=== PATIENT | male | born 1955 | race Caucasian/White ===

== ENCOUNTER 2018-02-21 16:30 | Outpatient (REF) | payer MEDICAID, SELFPAY ==
[2018-02-21 17:49] LABS: HGB 14.4 g/dL (13.5-17.5); Mean Corp. HGB Concentration 32.7 g/dL (32.0-36.0); Mean Corpuscular Hemoglobin 31.4 pg (27.0-33.0); Mean Corpuscular Volume 95.9 fL (80-95); Mean Platelet Volume 9.4 fL (8.0-11.0); Platelet Count 408 x1000/uL (130-400); RBC 4.59 m/cumm (4.50-6.00); RBC Distribution Width 14.7 % (11.8-14.1); White Blood Cell Count 11.94 k/cumm (4.4-10.8)
[2018-02-21 18:17] LABS: TSH (W/Ref FT4) 4.46 uIU/mL (0.358-3.74)
[2018-02-21 18:36] LABS: FREE T4 0.85 ng/dL (0.76-1.46)
== END 2018-02-21 16:50 ==
LOC: NCHCN 16:30
PROVIDERS: PCP Nurse Practitioner Family; Visit Provider Family Medicine
DX: E03.9 Hypothyroidism, unspecified (principal)
CPT/HCPCS: 85027; 84439; 84443

== ENCOUNTER 2018-05-27 14:34 | Outpatient (REF) | payer MEDICAID, SELFPAY ==
[2018-05-27 21:03] LABS: Abs Immature Grans 0.09 k/cumm (0.0-0.09); Absolute Basophil Count 0.03 k/cumm (0.0-0.2); Absolute Eosinophil Count 0.07 k/cumm (0.0-0.7); Absolute Lymphocyte Count 1.27 k/cumm (1.2-3.4); Absolute Monocyte Count 1.21 k/cumm (0.11-0.7); Absolute Neutrophil Count 10.47 k/cumm (1.2-6.7); Basophils % 0.2; Eosinophils % 0.5; HCT 42.3 % (40.0-50.0); Immature Grans % 0.7; Lymphocytes % 9.7; Mean Corp. HGB Concentration 33.1 g/dL (32.0-36.0); Mean Corpuscular Volume 93.6 fL (80-95); Mean Platelet Volume 9.4 fL (8.0-11.0); Monocytes % 9.2; Neutrophils % 79.7; Platelet Count 435 x1000/uL (130-400); RBC 4.52 m/cumm (4.50-6.00); White Blood Cell Count 13.14 k/cumm (4.4-10.8)
[2018-05-27 21:35] LABS: ALT 29 U/L (12-78); AST 16 U/L (15-37); Alkaline Phosphatase 95 U/L (46-116); Anion Gap 8.4 mmol/L (3-11); BUN 9 mg/dL (7-18); Bilirubin, Total 0.4 mg/dL (0.2-1.0); CO2 28.6 mmol/L (21.0-32.0); CREATININE 0.93 mg/dL (0.70-1.30); Calcium 9.6 mg/dL (8.5-10.1); Chloride 94 mmol/L (98-107); Glucose 121 mg/dL (70-100); Potassium 4.3 mmol/L (3.5-5.1); Sodium 131 mmol/L (136-145)
[2018-05-30 12:33] LABS: Lyme Ab w Rflx to Lyme Confirm Negative
== END 2018-05-27 14:54 ==
LOC: NCHCN 14:34
PROVIDERS: PCP Nurse Practitioner Family; Visit Provider Family Medicine
DX: R61 Generalized hyperhidrosis (principal)
CPT/HCPCS: 80053; 85025; 86618

== ENCOUNTER 2021-01-10 14:35 | Outpatient (REF) | payer MEDICAID, SELFPAY ==
[2021-01-10 21:38] LABS: Hemoglobin A1C 5.5 % (<5.7)
[2021-01-10 22:26] LABS: BUN 8 mg/dL (7-18); Calcium 9.1 mg/dL (8.5-10.1); Glucose 96 mg/dL (74-106)
[2021-01-10 22:27] LABS: Bilirubin, Total 0.4 mg/dL (0.2-1.0); CREATININE 0.9 mg/dL (0.70-1.30); Calculated LDL 107 mg/dL (<100); Cholesterol 166 mg/dL (<200); HDL Cholesterol 52 mg/dL (40-60); Total Protein 7.8 g/dL (6.4-8.2); Triglyceride 39 mg/dL (<150)
[2021-01-10 22:35] LABS: ALT 26 U/L (16-63); AST 19 U/L (15-37); Alkaline Phosphatase 90 U/L (46-116); Anion Gap 7.8 mmol/L (3-11); CO2 29.2 mmol/L (21.0-32.0); Chloride 102 mmol/L (98-107); Potassium 4.6 mmol/L (3.5-5.1); Sodium 139 mmol/L (136-145); TSH (W/Ref FT4) 6.09 uIU/mL (0.36-3.74)
[2021-01-13 08:06] LABS: PSA, Screening 0.9 ng/mL (0.0-4.5)
== END 2021-01-10 14:36 | disposition home or self-care (01) ==
LOC: NCHCN 14:35
PROVIDERS: PCP Nurse Practitioner Family; Visit Provider Nurse Practitioner Family
DX: E03.9 Hypothyroidism, unspecified (principal); I10 Essential (primary) hypertension; F39 Unspecified mood [affective] disorder; R73.9 Hyperglycemia, unspecified; R39.9 Unspecified symptoms and signs involving the genitourinary system; K30 Functional dyspepsia; G47.00 Insomnia, unspecified; Z12.5 Encounter for screening for malignant neoplasm of prostate
CPT/HCPCS: 80053; 80061; 84153; 83036; 84439; 84443

== ENCOUNTER 2021-03-25 12:32 | Outpatient (REF) | payer MEDICAID, SELFPAY ==
[2021-03-25 15:52] LABS: Abs Immature Grans 0.11 10^3/uL (0.0-0.06); Absolute Basophil Count 0.05 10^3/uL (0.0-0.2); Absolute Lymphocyte Count 1.66 10^3/uL (1.2-3.4); Absolute Neutrophil Count 6.11 10^3/uL (1.2-6.7); Basophils % 0.6; Eosinophils % 1.1; HCT 40.1 % (40.0-50.0); HGB 13.1 g/dL (13.5-17.5); Immature Grans % 1.2; Lymphocytes % 18.6; MCH 29.8 pg (27.0-33.0); MCHC 32.7 % (32.0-36.0); MCV 91.1 fL (80-95); MPV 9.2 fL (8.0-11.0); Monocytes % 10.1; Neutrophils % 68.4; Nucleated RBC 0 %; Platelet Count 365 10^3/uL (130-400); RDW 13.2 % (11.8-14.1); RDW-SD 43.9 fL; WBC 8.93 10^3/uL (4.4-10.8)
[2021-03-25 16:27] LABS: Iron 49 ug/dL (65-175); Total Iron Binding Capacity 277 ug/dL (250-450); Transferrin Sat 18 % (20-55)
[2021-03-25 16:28] LABS: ALT 29 U/L (16-63); AST 10 U/L (15-37); Albumin 3.9 g/dL (3.4-5.0); Alkaline Phosphatase 95 U/L (46-116); Anion Gap 10.4 mmol/L (3-11); BUN 5 mg/dL (7-18); Bilirubin, Total 0.3 mg/dL (0.2-1.0); CO2 25.6 mmol/L (21.0-32.0); CREATININE 0.8 mg/dL (0.70-1.30); Calcium 9.3 mg/dL (8.5-10.1); Calculated LDL 60 mg/dL (<100); Chloride 99 mmol/L (98-107); Cholesterol 122 mg/dL (<200); Ferritin 75 ng/mL (26-388); Glucose 99 mg/dL (74-106); HDL Cholesterol 50 mg/dL (40-60); Potassium 4.1 mmol/L (3.5-5.1); Sodium 135 mmol/L (136-145); TSH (W/Ref FT4) 4.52 uIU/mL (0.36-3.74); Total Protein 7.9 g/dL (6.4-8.2); Triglyceride 63 mg/dL (<150)
[2021-03-25 16:52] LABS: FREE T4 0.92 ng/dL (0.76-1.46)
[2021-03-26 10:50] LABS: Lyme Ab w Rflx to Lyme Confirm Negative (Negative)
[2021-03-27 23:57] LABS: Anaplasma phagocytophilum Negative (Negative); B. miyamotoi PCR Negative (Negative); Babesia divergens/MO-1 Negative (Negative); Babesia duncani Negative (Negative); Babesia microti Negative (Negative); Ehrlichia chaffeensis Negative (Negative); Ehrlichia ewingii/canis Negative (Negative); Ehrlichia muris eauclairensis Negative (Negative)
== END 2021-03-25 12:33 | disposition home or self-care (01) ==
LOC: NCHCN 12:32
PROVIDERS: PCP Nurse Practitioner Family; Visit Provider Nurse Practitioner Family
DX: R53.83 Other fatigue (principal); R39.9 Unspecified symptoms and signs involving the genitourinary system; E03.9 Hypothyroidism, unspecified; G47.00 Insomnia, unspecified; F39 Unspecified mood [affective] disorder
CPT/HCPCS: 80053; 80061; 87798; 82728; 83540; 83550; 84439; 84443; 85025; 86618

== ENCOUNTER 2021-05-26 13:27 | Outpatient (REF) | payer MEDICAID, SELFPAY ==
[2021-05-26 17:12] LABS: Abs Immature Grans 0.07 10^3/uL (0.0-0.06); Absolute Basophil Count 0.07 10^3/uL (0.0-0.2); Absolute Eosinophil Count 0.24 10^3/uL (0.0-0.7); Absolute Lymphocyte Count 1.95 10^3/uL (1.2-3.4); Absolute Monocyte Count 0.98 10^3/uL (0.1-0.8); Absolute Neutrophil Count 4.95 10^3/uL (1.2-6.7); Basophils % 0.8; Eosinophils % 2.9; HCT 40.8 % (40.0-50.0); HGB 13.4 g/dL (13.5-17.5); Immature Grans % 0.8; Lymphocytes % 23.6; MCH 30.6 pg (27.0-33.0); MCHC 32.8 % (32.0-36.0); MCV 93.2 fL (80-95); MPV 9.6 fL (8.0-11.0); Monocytes % 11.9; Nucleated RBC 0 %; Platelet Count 352 10^3/uL (130-400); RBC 4.38 10^6/uL (4.36-5.78); RDW 14.5 % (11.8-14.1); RDW-SD 50.4 fL; WBC 8.26 10^3/uL (4.4-10.8)
[2021-05-26 17:37] LABS: Ferritin 125 ng/mL (26-388); Iron 91 ug/dL (65-175); Total Iron Binding Capacity 285 ug/dL (250-450); Transferrin Sat 32 % (20-55)
== END 2021-05-26 13:28 | disposition home or self-care (01) ==
LOC: NCHCN 13:27
PROVIDERS: PCP Nurse Practitioner Family; Visit Provider Nurse Practitioner Family
DX: R53.83 Other fatigue (principal); I10 Essential (primary) hypertension; D50.9 Iron deficiency anemia, unspecified; I25.10 Atherosclerotic heart disease of native coronary artery without angina pectoris; K30 Functional dyspepsia; R31.21 Asymptomatic microscopic hematuria
CPT/HCPCS: 82728; 83540; 83550; 85025

== ENCOUNTER 2021-08-04 12:53 | Outpatient (REF) | payer MEDICAID, SELFPAY ==
[2021-08-04 15:36] LABS: TSH (W/Ref FT4) 3.74 uIU/mL (0.36-3.74)
== END 2021-08-04 12:54 | disposition home or self-care (01) ==
LOC: NCHCN 12:53
PROVIDERS: PCP Nurse Practitioner Family; Visit Provider Nurse Practitioner Family
DX: E03.9 Hypothyroidism, unspecified (principal)
CPT/HCPCS: 84443

== ENCOUNTER 2021-10-06 07:59 | Day surgery (SDC) | payer MEDICAID, SELFPAY ==
[2021-10-06 08:28] VITALS: BP 134/68; PULSE 75; RESP 16; TEMP 36.7; O2SAT 98
[2021-10-06] MEDS: Tropicam./Phenyleph. (1/2.5%) 5 ML BTL OD ×3 (08:36→08:53)
--- NOTE | 2021-10-06 08:58 | W.ANESPRE ---
General Info Date of Service Date Performed: 10/06/21 Height: 5 ft 8.75 in Weight: 72.8 kg Body Mass Index (BMI): 23.8 Surgical Procedure: Operation Date: 10/06/21 10:40 Proposed Procedure Side Surgeon p Cataract Extraction with IOL Implant Right Mumtaz Hennessy MD Meds Allergies and Home Medications Allergies Allergy/AdvReac Type Severity Reaction Status Date / Time perfume Allergy Intermediate Other (See Unverified 10/03/21 11:20 Comment) Home Medication Medication Instructions Recorded lisinopril 10 mg tablet 1 tab PO DAILY 05/09/14 sertraline 50 mg tablet (Zoloft) 1 tab PO DAILY 05/09/14 mirtazapine 30 mg tablet 1 tab PO DAILY 08/03/14 acetylcysteine 600 mg tablet (NAC) 2 tab PO BID 10/02/21 citalopram 20 mg tablet 30 mg PO DAILY 10/02/21 fluticasone propionate 50 1 spray intranasal BID 10/02/21 mcg/actuation nasal spray,suspension loratadine 10 mg tablet 1 tab PO DAILY 10/02/21 melatonin 10 mg tablet 1 tab PO HS 10/02/21 quetiapine 100 mg tablet 200 mg PO HS 10/02/21 simvastatin 20 mg tablet 1 tab PO DAILY 10/02/21 tamsulosin 0.4 mg capsule (Flomax) 0.4 mg PO HS 10/02/21 trazodone 50 mg tablet 1 tab PO HS 10/02/21 losartan 25 mg tablet 1 tab PO DAILY 10/03/21 Current Visit Medications: Current Medications Generic Name Dose Route Start Last Admin Trade Name Freq PRN Reason Stop Dose Admin Acetaminophen 1,000 mg 10/06/21 06:00 Acetaminophen 500 Mg Tab PO Q4H PRN PRN Miscellaneous Medication 0 ml 10/06/21 06:00 Prednisolone 1%, Moxifloxacin 0.5%, Nepafenac 0.1% 5ml Btl OD DIRECTED [facility] Miscellaneous Medication 0 ml 10/06/21 06:00 10/06/21 08:53 Tropicam./Phenyleph. (1/2.5%) 5 Ml Btl OD 1 drp DIRECTED [facility] Administration Tetracaine HCl 0 ml 10/06/21 06:00 Tetracaine 0.5% 4 Ml Btl OD DIRECTED [facility] Medical History Medical History ASCVD (arteriosclerotic cardiovascular disease) Asymptomatic microscopic hematuria Bilateral cataracts Dyspepsia Elevated blood sugar Fatigue Glaucoma HTN (hypertension) Hypothyroidism Insomnia Iron deficiency anemia Lower urinary tract symptoms (LUTS) Mood disorder Refusal of blood transfusions as patient is Tenriism Seasonal allergies Sebaceous cyst Surgical History Surgical History (Updated 10/06/21 @ 08:44 by Kait Villela RN) Hx of repair of rotator cuff pt denies he had thid surgery Tobacco Smoking/Tobacco Use Status: Former Tobacco Use Alcohol Alcohol Intake: never Substance Use Substance use: Daily Substance use type: marijuana Vital Signs and Lab Results Vital Signs Most Recent Vital Signs in EMR: Most Recent Vital Signs Temp Pulse Resp BP Pulse Ox 36.7 C 75 16 134/68 98 10/06/21 08:28 10/06/21 08:28 10/06/21 08:28 10/06/21 08:28 10/06/21 08:28 Lab Results Blood Type / Crossmatch: No Data to Display Complete Blood Count: No Data to Display Complete Metabolic Panel: No Data to Display Liver Function Panel: No Data to Display Coagulation Panel: No Data to Display Cardiac Panel: No Data to Display Arterial Blood Gas: No Data to Display Venous Blood Gas: No Data to Display Pancreas Panel: No Data to Display Thyroid Panel: No Data to Display Infectious Disease: No Data to Display Blood Cultures: No Data to Display Toxicology Panel: No Data to Display Imaging and Studies Imaging and Studies Study information below may be from another EMR and interpreted by another provider. Please see original notes in EMR for more complete details. Stress Test Summary: 05/09/2014: No ischemia. Anesthesia Assessment and Plan Anesthesia History Personal History: No History of Anesthesia Complications Family History: No Family History of Anesthesia Complications Exercise Tolerance Exercise Tolerance: Metabolic Equivalents>4 Pertinent Negatives Pertinent Negatives: No Symptoms of GERD Cardiac & Pulmonary Exam Cardiac Exam: Normal S1/S2 Heart Sounds Pulmonary Exam: Clear Bilateral Breath Sounds Implantable Cardiac Device Does patient have a Pacemaker or an ICD?: No Airway Exam Known Difficult Airway: No Mallampati Class: 1 Mouth Opening: Normal (> 3cm) Thyromental Distance: Greater than 3 cm Neck Range of Motion: Full ROM Neck Circumference: Normal Teeth Condition: Edentulous ASA Classification ASA Score: ASA 2 Emergency Case?: No NPO Status NPO Status: NPO Clears >2 hours, Solids >8 hours Anesthesia Plan Resuscitation Status: Full Code Anesthesia Technique: MAC Anesthesia Airway Planned: Natural Airway Monitors Used: Standard Monitors
[2021-10-06 08:59] VITALS: BMI 23.8
[2021-10-06] MEDS: Tetracaine 0.5% 4 ML BTL OD (09:41)
[2021-10-06] MEDS: Lidocaine 2% Jelly 6 ML SYR (09:42)
[2021-10-06] MEDS: Povidone-Iodine Ophth 30 ML BTL (09:42)
[2021-10-06] MEDS: Balanced Salt Soln.-PLUS 500 ML BAG (09:48)
[2021-10-06] MEDS: Duovisc Viscoelastic System EACH 1 EACH (09:48)
[2021-10-06] MEDS: Trypan Blue 0.06% 0.5 ML SYR (09:49)
[2021-10-06 10:12] VITALS: BP 123/70; PULSE 60; RESP 16; TEMP 36.5; O2SAT 98
--- NOTE | 2021-10-06 10:13 | W.PM.DSUDISC ---
Discharge Plan Disposition Patient Disposition: HOME Condition: Good Discharge Details Attending Provider: Mumtaz Hennessy Primary Care Provider: Grisel Young Home Meds and New Rx's Prescriptions: No Action lisinopril 10 MG tablet 1 tab PO DAILY sertraline [Zoloft] 50 MG tablet 1 tab PO DAILY mirtazapine 30 MG tablet 1 tab PO DAILY trazodone 50 mg tablet 1 tab PO HS Label Comments: Take 1 tablet by mouth every night as needed quetiapine 100 mg Tablet 200 mg PO HS citalopram 20 mg tablet 30 mg PO DAILY tamsulosin [Flomax] 0.4 mg Capsule 0.4 mg PO HS simvastatin 20 mg tablet 1 tab PO DAILY Label Comments: TAKE 1 TABLET BY MOUTH EVERY DAY fluticasone propionate 50 mcg/actuation spray,suspension 1 spray INTRANASAL BID Label Comments: SHAKE LIQUID AND USE 1 SPRAY IN EACH NOSTRIL TWICE DAILY loratadine 10 mg tablet 1 tab PO DAILY Label Comments: TAKE 1 TABLET BY MOUTH EVERY DAY melatonin 10 mg tablet 1 tab PO HS Label Comments: Take 1 tablet by mouth at bedtime Take one hour before bedtime NAC 600 mg tablet 2 tab PO BID Label Comments: Take 2 tablet by mouth twice a day losartan 25 mg tablet 1 tab PO DAILY Label Comments: TAKE 1 TABLET BY MOUTH EVERY DAY FOR BLOOD PRESSURE Discharge Instructions Stand Alone Forms: Post-op Topical Cataract, Alis Nunes (DSU) Discharge Orders Discharge Orders: Discharge Order (Routine); Ordered 10/06/21 Ordered By: Mumtaz Hennessy DS: Diagnosis Discharge Diagnosis (1) Nuclear sclerotic cataract of right eye: Status: Resolved
--- NOTE | 2021-10-06 10:13 | W.PM.OP ---
Time of Service: 10:13 Operative Note Operative Note DATE OF PROCEDURE: 10/06/21 PRE-OP DIAGNOSIS: Dense nuclear cataract, Poor red reflex, right eye secondary to dense cataract POST-OP DIAGNOSIS: same PROCEDURE: Cataract extraction using phacoemulsification with intraocular lens implantation, right eye, using capsular staining with Vision Blue SURGEON: Mumtaz Hennessy ANESTHESIA TYPE: Local By Surgeon and MAC Refer to Anesthesia Record PATHOLOGY: none sent COMPLICATIONS: None Patient was transported to: same day Patient's condition: stable Implants: Dionte and Dionte / [employer] Tecnis [id number] Indications: Progressive visual loss due to cataract, right eye Procedure Description: CATARACT SURGERY OPERATIVE REPORT PREOPERATIVE DIAGNOSIS: 1. Dense nuclear cataract, right eye 2. Poor red reflex secondary to #1 POSTOPERATIVE DIAGNOSIS: Same OPERATION: 1. Cataract extraction using phacoemulsification with posterior chamber intraocular lens implant, right eye. 2. Capsular staining with Vision Blue IOL: IOL Senior Quality Assurance Analyst/Model: Dionte & Dionte / REED Tecnis [id number] IOL Power: + 12.5 diopters IOL Serial Number: [id number] Optic Diameter: 6.0mm Haptic/Overall Diameter: 13.0mm PHACO INFO: Moses [email or web address] Vision System with OZil and Active Fluidics Cumulative Dispersed Energy (CDE): 25.73 seconds SURGEON: Mumtaz Hennessy MD, KENNEY ANESTHESIA: Monitored Anesthesia Care (MAC), with local sub-tenon's anesthetic infiltration COMPLICATIONS: None SPECIMENS: None INDICATIONS FOR PROCEDURE: The patient is a 66-year-old gentleman with history of diminished visual acuity in his right eye secondary to development of dense nuclear cataract. Visual acuity is 20/200 or less in that eye secondary to the dense cataract. He also has a history of high myopia. The option of cataract surgery was offered to the patient and he wished to proceed. PROCEDURE: The correct surgical eye was identified and marked as the right eye and the pupil was dilated in the preoperative area using mydriatics and cycloplegics. The dilated pupil size was 6.0 mm. The patient elected to proceed without oral sedation. The patient was brought to the operating room where cardiopulmonary monitoring was instituted and surgical time-out was performed, confirming the correct operative eye and IOL power. Topical anesthesia was administered and ophthalmic povidone-iodine 5% was instilled into the conjunctival fornices. Lidocaine gel was applied to the cornea and the liz-ocular area was prepped with Betadine 10% solution and draped in the usual sterile fashion for intraocular surgery, including an aperture drape. A Tegaderm transparent film dressing was cut in half and used to cover the lashes and lid margins. Care was taken to sequester the lashes and lid margins under the Tegaderm dressing. A lid speculum was placed between the lids of the operative eye and the Moses LuxOR Revalia operating microscope was maneuvered into position. Jayden scissors were then used to make a conjunctival buttonhole approximately 6mm posterior to the limbus in the inferonasal quadrant. Blunt dissection was carried out to expose bare sclera, and a blunt-tipped sub-tenon?s anesthesia cannula was introduced and passed posteriorly along the globe where non-preserved plain lidocaine was injected into posterior sub-Tenon?s space. A sideport knife was used to make a paracentesis port inferotemporally. Intraocular phenylephrine/lidocaine was injected into the anterior chamber. Air was injected into the anterior chamber, followed by Vision Blue, which was painted over the anterior capsule and then irrigated out with BSS. The anterior chamber was filled with viscoelastic. Viscoat was used to protect the corneal endothelium due to the dense cataract. A keratome knife was used to create a 2-plane near clear corneal tunnel extending approximately 2 mm into clear cornea superior temporally.. A flap was raised on the anterior capsule and capsulorhexis forceps were used to complete a continuous curvilinear capsulorhexis of 5.0 mm. The anterior chamber was quite deep, with thin capsule. Balanced salt solution was then used to perform cortical cleaving hydrodissection and nuclear hydrodelineation until the lens could be freely rotated within the capsular bag. The lens nucleus was then disassembled and removed within the capsular bag and iris plane using phacoemulsification. Residual cortical material was removed using the I/A handpiece. The posterior capsule was carefully polished to remove as much residual lens epithelial cells as safely possible. The capsular bag was then inflated and the anterior chamber deepened with viscoelastic. The lens implant described above was inserted into the capsular bag using the REED [place] Injector. A Kuglen hook was used to dial the IOL into position. Residual viscoelastic was then removed first from posterior to the IOL, then from the anterior chamber using the I/A handpiece. The lens implant was noted to center nicely within the capsular bag. The incisions were stromally hydrated, and the anterior chamber was reformed using BSS. Then 0.5cc of moxifloxacin 1.0mg/ml were injected into the capsular bag and anterior chamber. The incisions were checked with a Weck spear and found to be secure. Several drops of ophthalmic povidone-iodine 5% were then applied to the eye followed by two drops of Imprimis combination prednisolone/moxifloxacin/nepafenac solution. The drapes were removed and a clear plastic protective eye shield was placed over the eye. The patient was then returned to Same Day Surgery in stable condition.
--- NOTE | 2021-10-06 11:07 | W.ANESPOSTOP ---
Postoperative Evaluation Date, Time and Location Date Performed: 10/06/21 Time Performed: 11:02 Patient Location: Day Surgery Unit Vital Signs Most Recent Imported Vital Signs: Most Recent Vital Signs Temp Pulse Resp BP Pulse Ox 36.5 C 60 16 123/70 98 10/06/21 10:12 10/06/21 10:12 10/06/21 10:12 10/06/21 10:12 10/06/21 10:12 Pain Score Most Recent Pain Score: Most Recent Pain Score Pain Level 0 10/06/21 10:12 Assessment Mental Status: Awake (Alert & Oriented to Patient Baseline) Airway and Respiratory Function: Patent airway with normal (patient baseline) respiratory exam Cardiovascular Function: Hemodynamically Stable Hydration Status: Adequately Hydrated Nausea & Vomiting: No Nausea or Vomiting Pain: Pt. Denies Any Pain Peripheral Nerve Block: Patient did not receive a nerve block
== END 2021-10-06 10:30 | disposition home or self-care (01) ==
LOC: SUR 08:00
PROVIDERS: PCP Nurse Practitioner Family; Visit Provider Ophthalmology
PROC: (CPT 66982; principal; 2021-10-06 10:30)
DX: H25.11 Age-related nuclear cataract, right eye (principal); H25.89 Other age-related cataract
CPT/HCPCS: 66982; V2632

== ENCOUNTER 2021-10-20 08:06 | Day surgery (SDC) | payer MEDICAID, SELFPAY ==
[2021-10-20 08:28] VITALS: BP 153/74; PULSE 63; RESP 16; TEMP 36.7; O2SAT 98
[2021-10-20] MEDS: Tropicam./Phenyleph. (1/2.5%) 5 ML BTL OS ×3 (08:39→08:49)
--- NOTE | 2021-10-20 09:03 | ANES.PREOP_ITS ---
General Info Date of Service Date Performed: 10/20/21 Height: 5 ft 8 in Weight: 72.7 kg Body Mass Index (BMI): 24.3 Surgical Procedure: Operation Date: 10/20/21 10:40 Proposed Procedure Side Surgeon p Cataract Extraction with IOL Implant Left Mumtaz Hennessy MD Meds Allergies and Home Medications Allergies Allergy/AdvReac Type Severity Reaction Status Date / Time perfume Allergy Intermediate Other (See Verified 10/20/21 08:26 Comment) Home Medication Medication Instructions Recorded lisinopril 10 mg tablet 1 tab PO DAILY 05/09/14 sertraline 50 mg tablet (Zoloft) 1 tab PO DAILY 05/09/14 mirtazapine 30 mg tablet 1 tab PO DAILY 08/03/14 acetylcysteine 600 mg tablet (NAC) 2 tab PO BID 10/02/21 citalopram 20 mg tablet 30 mg PO DAILY 10/02/21 fluticasone propionate 50 1 spray intranasal BID 10/02/21 mcg/actuation nasal spray,suspension loratadine 10 mg tablet 1 tab PO DAILY 10/02/21 melatonin 10 mg tablet 1 tab PO HS 10/02/21 quetiapine 100 mg tablet 200 mg PO HS 10/02/21 simvastatin 20 mg tablet 1 tab PO DAILY 10/02/21 tamsulosin 0.4 mg capsule (Flomax) 0.4 mg PO HS 10/02/21 trazodone 50 mg tablet 1 tab PO HS 10/02/21 losartan 25 mg tablet 1 tab PO DAILY 10/03/21 Current Visit Medications: Current Medications Generic Name Dose Route Start Last Admin Trade Name Freq PRN Reason Stop Dose Admin Acetaminophen 1,000 mg 10/20/21 06:00 Acetaminophen 500 Mg Tab PO Q4H PRN PRN Miscellaneous Medication 0 ml 10/20/21 06:00 Prednisolone 1%, Moxifloxacin 0.5%, Nepafenac 0.1% 5ml Btl OS DIRECTED [facility] Miscellaneous Medication 0 ml 10/20/21 06:00 10/20/21 08:49 Tropicam./Phenyleph. 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 Seasonal allergies Sebaceous cyst Surgical History Surgical History Hx of repair of rotator cuff pt denies he had thid surgery Tobacco Smoking/Tobacco Use Status: Former Tobacco Use Alcohol Alcohol Intake: never Substance Use Substance use: Daily Substance use type: marijuana Vital Signs and Lab Results Vital Signs Most Recent Vital Signs in EMR: Most Recent Vital Signs Temp Pulse Resp BP Pulse Ox 36.7 C 63 16 153/74 H 98 10/20/21 08:28 10/20/21 08:28 10/20/21 08:28 10/20/21 08:28 10/20/21 08:28 Lab Results Blood Type / Crossmatch: No Data to Display Complete Blood Count: No Data to Display Complete Metabolic Panel: No Data to Display Liver Function Panel: No Data to Display Coagulation Panel: No Data to Display Cardiac Panel: No Data to Display Arterial Blood Gas: No Data to Display Venous Blood Gas: No Data to Display Pancreas Panel: No Data to Display Thyroid Panel: No Data to Display Infectious Disease: No Data to Display Blood Cultures: No Data to Display Toxicology Panel: No Data to Display Imaging and Studies Imaging and Studies Study information below may be from another EMR and interpreted by another provider. Please see original notes in EMR for more complete details. Stress Test Summary: 05/09/2014: No ischemia. Anesthesia Assessment and Plan Anesthesia History Personal History: No History of Anesthesia Complications Family History: No Family History of Anesthesia Complications Exercise Tolerance Exercise Tolerance: Metabolic Equivalents>4 Cardiac & Pulmonary Exam Cardiac Exam: Normal S1/S2 Heart Sounds Pulmonary Exam: Clear Bilateral Breath Sounds Implantable Cardiac Device Does patient have a Pacemaker or an ICD?: No Airway Exam Known Difficult Airway: No Mallampati Class: 1 Mouth Opening: Normal (> 3cm) Thyromental Distance: Greater than 3 cm Neck Range of Motion: Full ROM Neck Circumference: Normal Teeth Condition: Edentulous ASA Classification ASA Score: ASA 2 Emergency Case?: No NPO Status NPO Status: NPO Clears >2 hours, Solids >8 hours Anesthesia Plan Resuscitation Status: Full Code Anesthesia Technique: MAC Anesthesia Airway Planned: Natural Airway Monitors Used: Standard Monitors
[2021-10-20 10:00] VITALS: BMI 24.3
[2021-10-20] MEDS: Tetracaine 0.5% 4 ML BTL OS (10:00)
[2021-10-20] MEDS: Balanced Salt Soln.-PLUS 500 ML BAG (10:01)
[2021-10-20] MEDS: Lidocaine 2% Jelly 6 ML SYR (10:02)
[2021-10-20] MEDS: Povidone-Iodine Ophth 30 ML BTL (10:03)
--- NOTE | 2021-10-20 10:20 | W.PM.DSUDISC ---
Discharge Plan Disposition Patient Disposition: HOME Condition: Good Discharge Details Attending Provider: Mumtaz eHnnessy Primary Care Provider: Grisel Young Home Meds and New Rx's Prescriptions: No Action lisinopril 10 MG tablet 1 tab PO DAILY sertraline [Zoloft] 50 MG tablet 1 tab PO DAILY mirtazapine 30 MG tablet 1 tab PO DAILY trazodone 50 mg tablet 1 tab PO HS Label Comments: Take 1 tablet by mouth every night as needed quetiapine 100 mg Tablet 200 mg PO HS citalopram 20 mg tablet 30 mg PO DAILY tamsulosin [Flomax] 0.4 mg Capsule 0.4 mg PO HS simvastatin 20 mg tablet 1 tab PO DAILY Label Comments: TAKE 1 TABLET BY MOUTH EVERY DAY fluticasone propionate 50 mcg/actuation spray,suspension 1 spray INTRANASAL BID Label Comments: SHAKE LIQUID AND USE 1 SPRAY IN EACH NOSTRIL TWICE DAILY loratadine 10 mg tablet 1 tab PO DAILY Label Comments: TAKE 1 TABLET BY MOUTH EVERY DAY melatonin 10 mg tablet 1 tab PO HS Label Comments: Take 1 tablet by mouth at bedtime Take one hour before bedtime NAC 600 mg tablet 2 tab PO BID Label Comments: Take 2 tablet by mouth twice a day losartan 25 mg tablet 1 tab PO DAILY Label Comments: TAKE 1 TABLET BY MOUTH EVERY DAY FOR BLOOD PRESSURE Discharge Instructions Stand Alone Forms: Post-op Topical Cataract, Alis Nunes (DSU) Discharge Orders Discharge Orders: Discharge Order (Routine); Ordered 10/20/21 Ordered By: Mumtaz Hennessy DS: Diagnosis Discharge Diagnosis (1) Nuclear sclerotic cataract of left eye: Status: Resolved
[2021-10-20 10:21] VITALS: BP 141/96; PULSE 77; RESP 16; TEMP 36.5; O2SAT 96
--- NOTE | 2021-10-20 10:22 | ROE_ITS ---
Date of service: 10/20/21 Time of Service: : Operative Note Operative Note DATE OF PROCEDURE: 10/20/21 PRE-OP DIAGNOSIS: Nuclear cataract, left eye POST-OP DIAGNOSIS: same PROCEDURE: Cataract extraction using phacoemulsification with intraocular lens implant, left eye SURGEON: Mumtaz Hennessy ANESTHESIA TYPE: Local By Surgeon and MAC Refer to Anesthesia Record PATHOLOGY: none sent COMPLICATIONS: None Patient was transported to: same day Patient's condition: stable Implants: Dionte and Dionte / [employer] Opt[employer] Tecnis [id number] Indications: Progressive decreased vision due to cataract, left eye Procedure Description: CATARACT SURGERY OPERATIVE REPORT PREOPERATIVE DIAGNOSIS: 1. Nuclear cataract, left eye POSTOPERATIVE DIAGNOSIS: Same OPERATION: 1. Cataract extraction using phacoemulsification with posterior chamber intraocular lens implant, left eye. IOL: IOL Cash Applications Coordinator/Model: Dionte & Dionte / REED Tecnis [id number] IOL Power: + 14.0 diopters IOL Serial Number: [id number] Optic Diameter: 6.0 mm Haptic/Overall Diameter: 13.0 mm PHACO INFO: Moses AG&Purion Vision System with OZil and Active Fluidics Cumulative Dispersed Energy (CDE): 11.56 seconds SURGEON: Mumtaz Hennessy MD, KENNEY ANESTHESIA: Monitored A [facility] (MAC), with local sub-tenon's anesthetic infiltration COMPLICATIONS: None SPECIMENS: None INDICATIONS FOR PROCEDURE: The patient is a 66-year-old gentleman with history of diminished visual acuity in both eyes secondary to the development of bilateral nuclear cataract. He has already undergone cataract surgery in the right eye and is doing well postoperatively. He now presents for cataract surgery in the left eye. PROCEDURE: The correct surgical eye was identified and marked as the left eye and the pupil was dilated in the preoperative area using mydriatics and cycloplegics. The dilated pupil size was 7.0 mm. The patient elected to proceed without oral sedation. The patient was brought to the operating room where cardiopulmonary monitoring was instituted and surgical time-out was performed, confirming the correct operative eye and IOL power. Topical anesthesia was administered and ophthalmic povidone-iodine 5% was instilled into the conjunctival fornices. Lidocaine gel was applied to the cornea and the liz-ocular area was prepped with Betadine 10% solution and draped in the usual sterile fashion for intraocular surgery, including an aperture drape. A Tegaderm transparent film dressing was cut in half and used to cover the lashes and lid margins. Care was taken to sequester the lashes and lid margins under the Tegaderm dressing. A lid speculum was placed between the lids of the operative eye and the Moses LuxOR Revalia operating microscope was maneuvered into position. Jayden scissors were then used to make a conjunctival buttonhole approximately 6mm posterior to the limbus in the inferonasal quadrant. Blunt dissection was carried out to expose bare sclera, and a blunt-tipped sub-tenon?s anesthesia cannula was introduced and passed posteriorly along the globe where non- preserved plain lidocaine was injected into posterior sub-Tenon?s space. A sideport knife was used to make a paracentesis port superior ly/superiortemporally. Intraocular phenylephrine/lidocaine was injected int the anterior chamber.. The anterior chamber was filled with viscoelastic. A keratome knife was used to construct a 2-plane near-clear corneal tunnel extending 2.0mm into clear cornea temporally. A flap was raised on the anterior capsule and capsulorhexis forceps were used to complete a continuous curvilinear capsulorhexis of 5.0 mm. Balanced salt solution was then used to perform cortical cleaving hydrodissection and nuclear hydrodelineation until the lens could be freely rotated within the capsular bag. The lens nucleus was then disassembled and removed within the capsular bag and iris plane using phacoemulsification. Residual cortical material was removed using the 45-degree angled silicone I/A tip with 0.3mm port. The posterior capsule was carefully polished to remove as much residual lens epithelial cells as safely possible. The capsular bag was then inflated and the anterior chamber deepened with viscoelastic. The lens implant described above was inserted into the capsular bag using the REED [place] Injector. A Kuglen hook was used to dial the IOL into position. Residual viscoelastic was then removed first from posterior to the IOL, then from the anterior chamber using the I/A handpiece. The lens implant was noted to center nicely within the capsular bag. The incisions were stromally hydrated, and the anterior chamber was reformed using BSS. Then 0.5cc of moxifloxacin 1.0mg/ml were injected into the capsular bag and anterior chamber. The incisions were checked with a Weck spear and found to be secure. Several drops of ophthalmic povidone-iodine 5% were then applied to the eye followed by two drops of Imprimis combination prednisolone/moxifloxacin/nepafenac solution. The drapes were removed and a clear plastic protective eye shield was placed over the eye. The patient was then returned to Same Day Surgery in stable condition.
--- NOTE | 2021-10-20 10:42 | W.ANESPOSTOP ---
Postoperative Evaluation Date, Time and Location Date Performed: 10/20/21 Time Performed: 10:28 Patient Location: Day Surgery Unit Vital Signs Most Recent Imported Vital Signs: Most Recent Vital Signs Temp Pulse Resp BP Pulse Ox 36.5 C 77 16 141/96 H 96 10/20/21 10:21 10/20/21 10:21 10/20/21 10:21 10/20/21 10:21 10/20/21 10:21 Pain Score Most Recent Pain Score: Most Recent Pain Score Pain Level 0 10/20/21 10:21 Assessment Mental Status: Awake (Alert & Oriented to Patient Baseline) Airway and Respiratory Function: Patent airway with normal (patient baseline) respiratory exam Cardiovascular Function: Hemodynamically Stable Hydration Status: Adequately Hydrated Nausea & Vomiting: No Nausea or Vomiting Pain: Pt. Denies Any Pain Peripheral Nerve Block: Patient did not receive a nerve block
== END 2021-10-20 10:45 | disposition home or self-care (01) ==
LOC: SUR 08:06
PROVIDERS: PCP Nurse Practitioner Family; Visit Provider Ophthalmology
PROC: (CPT 66984; principal; 2021-10-20 10:30)
DX: H25.12 Age-related nuclear cataract, left eye (principal); I10 Essential (primary) hypertension; I25.10 Atherosclerotic heart disease of native coronary artery without angina pectoris; E03.9 Hypothyroidism, unspecified
CPT/HCPCS: 66984; V2632

== ENCOUNTER 2021-11-04 18:05 | Outpatient (REF) | payer MEDICAID, SELFPAY ==
[2021-11-04 19:54] LABS: Iron 78 ug/dL (65-175); Total Iron Binding Capacity 268 ug/dL (250-450); Transferrin Sat 29 % (20-55)
[2021-11-04 20:05] LABS: Ferritin 151 ng/mL (26-388)
== END 2021-11-04 18:06 | disposition home or self-care (01) ==
LOC: NCHCN 18:05
PROVIDERS: PCP Nurse Practitioner Family; Visit Provider Nurse Practitioner Family
DX: E03.9 Hypothyroidism, unspecified (principal); R53.83 Other fatigue; I25.10 Atherosclerotic heart disease of native coronary artery without angina pectoris; I10 Essential (primary) hypertension; D50.9 Iron deficiency anemia, unspecified; R31.21 Asymptomatic microscopic hematuria
CPT/HCPCS: 82728; 83540; 83550

== ENCOUNTER → 2022-07-13 09:03 | Outpatient (BNVA) | payer MEDICARE, MEDICAID, SELFPAY | PROVIDERS: PCP Nurse Practitioner Family; Referring Provider Nurse Practitioner Family; Visit Provider Nurse Practitioner Gerontology | DX: R31.29 Other microscopic hematuria (principal); R39.89 Other symptoms and signs involving the genitourinary system | CPT/HCPCS: 51798; 81003; 99214 ==

== ENCOUNTER 2022-07-13 18:56 | Outpatient (REF) | payer MEDICARE, SELFPAY ==
[2022-07-13 12:59] LABS: Bilirubin Negative (Negative); Blood Trace-intact (Negative); Clarity Clear (Clear); Glucose Negative (Negative); Ketones Negative (Negative); Leukocyte Esterase Negative (Negative); Nitrite Negative (Negative); Urobilinogen 0.2 mg/dL (Up to 0.2); pH 5.5 (5-8)
[2022-07-13 13:05] LABS: Bacteria Rare HPF (Negative); C & S Indicated? No; Casts Negative LPF (Negative); Crystals Negative HPF (Negative); Epithelial Cells Rare HPF (Negative); Mucus Negative (Negative); WBC 0-2 HPF (0-5)
== END 2022-07-13 18:57 | disposition home or self-care (01) ==
LOC: LBN 18:56
PROVIDERS: PCP Nurse Practitioner Family; Visit Provider Nurse Practitioner Gerontology
DX: R31.29 Other microscopic hematuria (principal); R39.89 Other symptoms and signs involving the genitourinary system
CPT/HCPCS: 81003; 81015

== ENCOUNTER 2022-08-05 03:22 | Outpatient (CLI) | payer MEDICARE, MEDICAID, SELFPAY ==
--- NOTE | 2022-08-05 08:15 | DI.CT_ITS ---
Exam(s) CT ABDOMEN PELVIS WO/W EXAM: CT ABDOMEN PELVIS WO/W CLINICAL HISTORY: painless hematuria in smoker, R31.9 TECHNIQUE: Imaging Protocol: Axial computed tomography images with coronal and sagittal reformatted images were created and reviewed CONTRAST MATERIAL: Intravenous: Omnipaque 350 Contrast volume:100 mL Oral: No COMPARISON: No exams were available for comparison FINDINGS: The examination is limited due to patient motion artifact. ABDOMEN: Lung Bases: No acute pulmonary process in the bases. Liver: Normal density. No measurable mass. Portal, Superior Mesenteric, and Splenic Veins: Unremarkable. Gallbladder and Biliary Tract: No radiodense calculus or dilation. Pancreas: Normal density, no abnormal calcifications or inflammatory process. Spleen: Normal. Adrenals: No masses seen. Kidneys: Normal size, contour and axis. No radiodense stones or obstructive uropathy. There is a 1.6 cm simple cyst in the midpole of the left kidney. No follow-up is recommended. Note is made of a re troaortic left renal vein. Abdominal Aorta: Abdominal portion non-dilated. Atherosclerosis. Bowel: There are diverticula seen in the colon, but no evidence of acute diverticulitis. Appendix is unremarkable. There is no evidence of bowel obstruction or significant bowel wall thickening. Peritoneal Cavity: No ascites, collection or mesenteric inflammatory response. No free air. Lymph Nodes: Within normal limits. Bones: Within normal limits for the patient's age. 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 Soft Tissues: Unremarkable. PELVIS: Bladder: There is mild symmetric thickening of the wall of the urinary bladder. The urinary bladder is not completely distended. Reproductive Organs: There is an enlarged prostate gland. Lymph Nodes: Within normal limits. Bones: Within normal limits for the patient's age. IMPRESSION: 1. No evidence of nephrolithiasis or hydronephrosis. 2. 1.6 cm simple renal cyst on the left. No solid renal masses. 3. Mild symmetric thickening of the wall of the urinary bladder. This may be due to underdistention. Inflammatory or infectious process cannot be excluded. No definite wall mass is seen but neoplasm cannot be entirely excluded. 4. Enlarged prostate gland. RADIATION DOSE DELIVERED: 2,338.39mGy.cm Total DLP 2,338.39mGy.cm Total DLP DATA REPOSITORY: All CT scans at this facility are submitted to the National Radiology Data Registry (NRDR) Dose Index Registry (DIR) with the [employer] (ACR). RADIATION OPTIMIZATION: All CT scans at this facility use at least one of these dose optimization te chniques: automated exposure control; mA and/or kV adjustment per patient size (includes targeted exa ms where dose is matched to clinical indication); or iterative reconstruction.
[2022-08-05 12:29] LABS: CREATININE 1.1 mg/dL (0.70-1.30)
[2022-08-05] MEDS: Omnipaque 350 MG/ML 100 ML BTL IJ (13:16)
[2022-08-05] MEDS: Normal Saline - Diluent 50 ML VIAL IJ (13:17)
== END 2022-08-05 03:42 ==
PROVIDERS: PCP Nurse Practitioner Family; Visit Provider Nurse Practitioner Gerontology
DX: R31.9 Hematuria, unspecified (principal); N40.1 Benign prostatic hyperplasia with lower urinary tract symptoms; N28.1 Cyst of kidney, acquired
CPT/HCPCS: 74178; 82565; J3490

== ENCOUNTER → 2022-08-18 07:46 | Outpatient (BNVA) | payer MEDICARE, MEDICAID, SELFPAY | PROVIDERS: PCP Nurse Practitioner Family; Referring Provider Nurse Practitioner Family; Visit Provider Nurse Practitioner Gerontology | DX: R31.29 Other microscopic hematuria (principal) | CPT/HCPCS: 99213 ==

== ENCOUNTER → 2022-08-28 08:41 | Outpatient (BNVA) | payer MEDICARE, MEDICAID, SELFPAY | PROVIDERS: PCP Nurse Practitioner Family; Referring Provider Nurse Practitioner Family; Visit Provider Urology | DX: R31.29 Other microscopic hematuria (principal) | CPT/HCPCS: 52000 ==

== ENCOUNTER 2022-10-26 14:09 | Outpatient (REF) | payer MEDICARE, MEDICAID, SELFPAY ==
[2022-10-26 21:34] LABS: Abs Immature Grans 0.09 10^3/uL (0.0-0.06); Absolute Basophil Count 0.08 10^3/uL (0.0-0.2); Absolute Eosinophil Count 0.17 10^3/uL (0.0-0.7); Absolute Lymphocyte Count 2.14 10^3/uL (1.2-3.4); Absolute Monocyte Count 0.98 10^3/uL (0.1-0.8); Absolute Neutrophil Count 5.42 10^3/uL (1.2-6.7); Basophils % 0.9; Eosinophils % 1.9; HCT 41.6 % (40.0-50.0); HGB 13.9 g/dL (13.5-17.5); Lymphocytes % 24.1; MCHC 33.4 % (32.0-36.0); MCV 96 fL (80-95); MPV 9.2 fL (8.0-11.0); Neutrophils % 61.1; Platelet Count 342 10^3/uL (130-400); RBC 4.35 10^6/uL (4.36-5.78); RDW 14.2 % (11.8-14.1); WBC 8.88 10^3/uL (4.4-10.8)
[2022-10-26 21:53] LABS: Iron 81 ug/dL (65-175); Total Iron Binding Capacity 314 ug/dL (250-450); Transferrin Sat 26 % (20-55)
[2022-10-26 22:06] LABS: Anion Gap 8.9 mmol/L (3-11); BUN 7 mg/dL (7-18); CO2 28.1 mmol/L (21.0-32.0); Calcium 9.5 mg/dL (8.5-10.1); Chloride 102 mmol/L (98-107); Estimated GFR 83.52 (mL/min/1.73m2); Ferritin 100 ng/mL (26-388); Glucose 108 mg/dL (74-106); Potassium 4.3 mmol/L (3.5-5.1); Sodium 139 mmol/L (136-145); TSH (W/Ref FT4) 5.84 uIU/mL (0.36-3.74)
[2022-10-26 22:26] LABS: FREE T4 0.73 ng/dL (0.76-1.46)
[2022-10-27 19:47] LABS: PSA, Screening 0.8 ng/mL (<=4.5)
== END 2022-10-26 14:10 | disposition home or self-care (01) ==
LOC: NCHCN 14:09
PROVIDERS: PCP Nurse Practitioner Family; Visit Provider Nurse Practitioner Family
DX: D50.9 Iron deficiency anemia, unspecified (principal); I10 Essential (primary) hypertension; G47.33 Obstructive sleep apnea (adult) (pediatric); N40.0 Benign prostatic hyperplasia without lower urinary tract symptoms; E03.9 Hypothyroidism, unspecified
CPT/HCPCS: 80048; 84153; 82728; 83540; 83550; 84439; 84443; 85025

== ENCOUNTER 2022-12-24 16:06 | Outpatient (REF) | payer MEDICARE, MEDICAID, SELFPAY ==
[2022-12-24 22:09] LABS: TSH (W/Ref FT4) 5.35 uIU/mL (0.36-3.74)
[2022-12-24 22:28] LABS: FREE T4 0.84 ng/dL (0.76-1.46)
== END 2022-12-24 16:07 | disposition home or self-care (01) ==
LOC: NCHCN 16:06
PROVIDERS: PCP Nurse Practitioner Family; Visit Provider Nurse Practitioner Family
DX: E03.9 Hypothyroidism, unspecified (principal); F39 Unspecified mood [affective] disorder; R60.0 Localized edema; G47.33 Obstructive sleep apnea (adult) (pediatric); I25.10 Atherosclerotic heart disease of native coronary artery without angina pectoris; D64.9 Anemia, unspecified; J30.2 Other seasonal allergic rhinitis; I10 Essential (primary) hypertension
CPT/HCPCS: 84439; 84443

== ENCOUNTER 2023-02-09 09:31 | Outpatient (REF) | payer MEDICARE, MEDICAID, SELFPAY ==
[2023-02-09 15:49] LABS: TSH (W/Ref FT4) 3.19 uIU/mL (0.36-3.74)
== END 2023-02-09 09:32 | disposition home or self-care (01) ==
LOC: NCHCN 09:31
PROVIDERS: PCP Nurse Practitioner Family; Visit Provider Nurse Practitioner Family
DX: E03.9 Hypothyroidism, unspecified (principal)
CPT/HCPCS: 84443

== ENCOUNTER 2023-06-28 15:47 | Outpatient (REF) | payer MEDICARE, MEDICAID, SELFPAY ==
[2023-06-28 21:02] LABS: Abs Immature Grans 0.08 10^3/uL (0.0-0.06); Absolute Basophil Count 0.07 10^3/uL (0.0-0.2); Absolute Eosinophil Count 0.15 10^3/uL (0.0-0.7); Absolute Lymphocyte Count 1.62 10^3/uL (1.2-3.4); Absolute Monocyte Count 0.99 10^3/uL (0.1-0.8); Absolute Neutrophil Count 6.78 10^3/uL (1.2-6.7); Basophils % 0.7; Eosinophils % 1.5; HCT 39.6 % (40.0-50.0); HGB 13.4 g/dL (13.5-17.5); Immature Grans % 0.8; Lymphocytes % 16.7; MCH 31.5 pg (27.0-33.0); MCHC 33.8 % (32.0-36.0); MCV 93 fL (80-95); MPV 9.2 fL (8.0-11.0); Monocytes % 10.2; Neutrophils % 70.1; Platelet Count 340 10^3/uL (130-400); RBC 4.25 10^6/uL (4.36-5.78); RDW 14.3 % (11.8-14.1); WBC 9.69 10^3/uL (4.4-10.8)
== END 2023-06-28 15:48 | disposition home or self-care (01) ==
LOC: NCHCN 15:47
PROVIDERS: PCP Nurse Practitioner Family; Visit Provider Nurse Practitioner Family
DX: D64.9 Anemia, unspecified (principal)
CPT/HCPCS: 85025

== ENCOUNTER → 2023-08-18 04:03 | Outpatient (CLI) | payer MEDICARE, MEDICAID, SELFPAY ==
--- NOTE | 2023-08-18 | DI.US_ITS ---
Exam(s) US AAA SCREENING EXAM: US AAA SCREENING CLINICAL HISTORY: Z91.89 Other specified personal risk factors, not elsewhere classified COMPARISON: No exams were available for comparison FINDINGS: Abdominal Aorta: Proximal: 2.4 cm Mid: 2.2 cm Distal: 2.0 cm Iliacs: Right: 1.2 cm Left: 1.0 cm IMPRESSION: No evidence of abdominal aortic aneurysm. DATA REPOSITORY:
== END ==
PROVIDERS: PCP Nurse Practitioner Family; Visit Provider Nurse Practitioner Family
DX: Z13.6 Encounter for screening for cardiovascular disorders (principal); Z91.89 Other specified personal risk factors, not elsewhere classified
CPT/HCPCS: 76706

== ENCOUNTER → 2023-08-27 08:14 | Outpatient (BNVA) | payer MEDICARE, MEDICAID, SELFPAY | PROVIDERS: PCP Nurse Practitioner Family; Referring Provider Nurse Practitioner Family; Visit Provider Urology | DX: R31.29 Other microscopic hematuria (principal) | CPT/HCPCS: 99213 ==

== ENCOUNTER 2023-09-16 16:29 | Outpatient (REF) | payer MEDICARE, MEDICAID, SELFPAY ==
--- OUTSIDE RECORDS SUMMARY | 2023-09-16 16:33 | XMS_ITS | Referral Summary ---
Author Organization [facility] Address [address] [place] [address] Care Team Providers Care Hedge Fund Trader Name Role Phone Unavailable Primary Care Provider Unavailabl e Social History Tobacco Use Types Packs/Day Years Used Date Smoking Tobacco: Never Assessed Interpersonal Safety Answer Date Record ed Physically Hurt Never 10/02/2019 Verbally Threaten Not on file 10/02/2019 Sex and Gender Information Value Date Recorded Sex Assigned at Not on file Gender Identity Not on file Sexual Orientation Not on file Plan of Treatment Not on file Insurance Payer Benefit Plan / Group Subscriber ID Effective Dates Phone Address Type [place] [id number] 2023-[address] mock [address] [place] [address] [place]
--- OUTSIDE RECORDS SUMMARY | 2023-09-16 16:33 | XMS_ITS | Clinical Summary ---
Author Organization [facility] Address [address] [place] [address] Care Team Providers Care Braille Transcriber Name Role Phone Unavailable Primary Care Provider [...] Orientation Not on file Plan of Treatment Health Maintenance Due Date Last Done Comments Hepatitis C Screen 1955 RSV Immunization ( o r 60+ Years) (1 - 1-dose 60+ series) 2017 Fall Risk Screening 2022 COVID-19 Vaccine (2022-24 season) 2022 Insurance Payer Benefit Plan / Group Subscriber ID Effective Dates Phone Address Type [place] [id number] 2023-[address]ada mock [address] [place] [address] [place]
--- OUTSIDE RECORDS SUMMARY | 2023-09-16 16:33 | XMS_ITS | Encounter Summary ---
Author Organization [facility] Address [address] [place] [address] Care Team Providers Care Family Intervention Specialist Name Role Phone Unavailable Primary Care Provider Unavailabl e Encounter Details Date Type Department Care Team (Late st Contact Info) Description 03/25/2021 Lab Requisition [facility] Pathology & Laboratory Medicine - [facility] [address] [phone] Outr Resulting Lab, Provider Social History Tobacco Use Types Packs/Day Years Used Date Smoking Tobacco: Never Assessed Interpersonal Safety Answer Date Record ed Physically Hurt Never 10/02/2019 Verbally Threaten Not on file 10/02/2019 Sex and Gender Information Value Date Recorded Sex Assigned at Not on file Gender Identity Not on file Sexual Orientation Not on file documented as of this encounter Plan of Treatment Not on file documented as of this encounter Procedures Procedure Name Priority Date/Time Associated Diagnosis Comments LYME AB Routine 03/25/2021 11:58 EST documented in this encounter Results * LYME AB (03/25/2021 11:58 EST) Lyme Ab Negative Negative 03/26/2021 10:41 EST [facility] Blood VENOUS BLOOD / Unknown 03/25/2021 11:58 EST 03/25/2021 21:18 EST Provider Outr Resulting Lab IMMUNOLOGY A ND SEROLOGY ORDERABLES [facility] [address] [place] [address] documented in this encounter Visit Diagnoses Not on filedocumented in this encounter
--- OUTSIDE RECORDS SUMMARY | 2023-09-16 16:33 | XMS_ITS | Encounter Summary ---
Author Organization [facility] Address [address] [place] [address] Care Team Providers Care Jogger Operator Name Role Phone Unavailable Primary Care Provider Unavailabl e Encounter Details Date Type Department Care Team (Late st Contact Info) Description 01/11/2021 Lab Requisition [facility] Pathology & Laboratory Medicine - [facility] [address] [place] [address] Outr Resulting Lab, Provider Social History Tobacco [...] Procedure Name Priority Date/Time Associated Diagnosis Comments PSA TOTAL, DIAGNOSTIC Routine 01/10/2021 14:15 EST documented in this encounter Results * PSA TOTAL, DIAGNOSTIC (01/10/2021 14:15 EST) PSA 0.9 0.0 - 4.5 ng/mL 01/13/2021 8:01 EST [facility] Blood VENOUS BLOOD / Unknown 01/10/2021 14:15 EST 01/12/2021 15:59 EST Narrative [facility] - 01/13/2021 8:01 EST NOTE: Serum PSA concentration should not be interpreted as absolute evidence for the presence or absence of malignant disease. Assayed on Siemens ADVIA Centaur XPT using chemiluminescent technology.??Values obtained by using different assay methods cannot be used interchangeably. Provider Outr Resulting Lab CHEMISTRY & BLOOD GAS ORDERABLES [facility] [address] [place] [address] documented in this encounter Visit Diagnoses Not on filedocumented in this encounter
--- OUTSIDE RECORDS SUMMARY | 2023-09-16 16:33 | XMS_ITS | Encounter Summary ---
Author Organization [facility] Address [address] [place] [address] Care Team Providers Care Roller Coaster Operator Name Role Phone Unavailable Primary Care Provider Unavailabl e Encounter Details Date Type Department Care Team (Late st Contact Info) Description 10/27/2022 Lab Requisition [facility] Pathology & Laboratory Medicine - [facility] [address] [place] [address] Outr Resulting Lab, Provider Social History Tobacco [...] Associated Diagnosis Comments PSA TOTAL, DIAGNOSTIC Routine 10/26/2022 13:48 EDT documented in this encounter Results * PSA TOTAL, DIAGNOSTIC (10/26/2022 13:48 EDT) PSA 0.8 <=4.5 ng/mL 10/27/2022 19:42 EDT [facility] Blood VENOUS BLOOD / Unknown 10/26/2022 13:48 EDT 10/27/2022 17:31 EDT Narrative [facility] - 10/27/2022 19:42 EDT NOTE: Serum PSA concentration should not be interpreted as absolute evidence for the presence or absence of malignant disease. Assayed on Siemens ADVIA Centaur XPT using chemiluminescent technology.??Values obtained by using different assay methods cannot be used interchangeably. Provider Outr Resulting Lab CHEMISTRY & BLOOD GAS ORDERABLES [facility] [address] [place] [address] documented in this encounter Visit Diagnoses Not on filedocumented in this encounter
[2023-09-16 21:07] LABS: Abs Immature Grans 0.05 10^3/uL (0.0-0.06); Absolute Basophil Count 0.06 10^3/uL (0.0-0.2); Absolute Eosinophil Count 0.09 10^3/uL (0.0-0.7); Absolute Lymphocyte Count 1.62 10^3/uL (1.2-3.4); Absolute Neutrophil Count 5.95 10^3/uL (1.2-6.7); Basophils % 0.7 %; HCT 41.6 % (40.0-50.0); Immature Grans % 0.6 %; Lymphocytes % 18.5 %; MCH 31.4 pg (27.0-33.0); MCHC 33.7 % (32.0-36.0); MCV 93 fL (80-95); MPV 9.8 fL (8.0-11.0); Monocytes % 11.4 %; Neutrophils % 67.8 %; Platelet Count 357 10^3/uL (130-400); RBC 4.46 10^6/uL (4.36-5.78); RDW 13.6 % (11.8-14.1); RDW-SD 46.7 fL; Reticulocyte 1.7 % (0.5-2.4); WBC 8.77 10^3/uL (4.4-10.8)
[2023-09-16 21:19] LABS: Iron 77 ug/dL (65-175); Total Iron Binding Capacity 327 ug/dL (250-450); Transferrin Sat 24 % (20-55)
[2023-09-16 21:47] LABS: ALT 55 U/L (16-63); AST 23 U/L (15-37); Albumin 3.9 g/dL (3.4-5.0); Alkaline Phosphatase 112 U/L (46-116); Anion Gap 6.5 mmol/L (3-11); BUN 9 mg/dL (7-18); Bilirubin, Total 0.44 mg/dL (0.2-1.0); CO2 28.5 mmol/L (21.0-32.0); CREATININE 1.1 mg/dL (0.70-1.30); Calcium 9.8 mg/dL (8.5-10.1); Chloride 102 mmol/L (98-107); Estimated GFR 74.04 (mL/min/1.73m2); Ferritin 76 ng/mL (26-388); Glucose 113 mg/dL (74-106); Potassium 4.3 mmol/L (3.5-5.1); Sodium 137 mmol/L (136-145); TSH (W/Ref FT4) 3.21 uIU/mL (0.36-3.74)
[2023-09-16 22:07] LABS: NT-proBNP 108 pg/mL (<300)
== END 2023-09-16 16:30 | disposition home or self-care (01) ==
LOC: NCHCN 16:29
PROVIDERS: PCP Nurse Practitioner Family; Visit Provider Nurse Practitioner Family
DX: D64.9 Anemia, unspecified (principal); I10 Essential (primary) hypertension; R39.9 Unspecified symptoms and signs involving the genitourinary system; E03.9 Hypothyroidism, unspecified; R60.0 Localized edema
CPT/HCPCS: 80053; 82728; 83540; 83550; 83880; 84154; 84443; 85025; 85045

== ENCOUNTER 2023-09-30 15:12 | Outpatient (REF) | payer MEDICAID, SELFPAY ==
--- OUTSIDE RECORDS SUMMARY | 2023-09-30 15:20 | XMS_ITS | Referral Summary ---
Author Organization [facility] Address [address] [place] [address] Care Team Providers Care Healthcare Representative Name Role Phone Unavailable Primary Care Provider [...] Phone Address Type [place] [id number] 2023-[address]ada mock [address] [place] [address] [place]
--- OUTSIDE RECORDS SUMMARY | 2023-09-30 15:20 | XMS_ITS | Clinical Summary ---
Author Organization [facility] Address [address] [place] [address] Care Team Providers Care Avionics Systems Repairer Name Role Phone Unavailable Primary Care Provider [...] Phone Address [place] [id number] 2023-[address] mock [address] [place] [address] [place]
--- OUTSIDE RECORDS SUMMARY | 2023-09-30 15:20 | XMS_ITS | Encounter Summary ---
Author Organization [facility] Address [address] [place] [address] Care Team Providers Care Conveyancer Name Role Phone Unavailable Primary Care Provider Unavailabl e Encounter Details Date Type Department Care Team (Late st Contact Info) Description 03/25/2021 Lab Requisition [facility] Pathology & Laboratory Medicine - [facility] [address] [phone] Outr Resulting Lab, Provider Social History Tobacco [...] Lyme Ab Negative Negative 03/26/2021 10:41 EST [facility] Blood VENOUS BLOOD / Unknown 03/25/2021 11:58 EST 03/25/2021 21:18 EST Provider Outr Resulting Lab IMMUNOLOGY A ND SEROLOGY ORDERABLES [facility] [address] [place] [address] documented in this encounter Visit Diagnoses Not on filedocumented in this encounter
--- OUTSIDE RECORDS SUMMARY | 2023-09-30 15:20 | XMS_ITS | Encounter Summary ---
Author Organization [facility] Address [address] [place] [address] Care Team Providers Care Diabetes Manager Name Role Phone Unavailable Primary Care Provider Unavailabl e Encounter Details Date Type Department Care Team (Late st Contact Info) Description 01/11/2021 Lab Requisition [facility] Pathology & Laboratory Medicine - [facility] [address] [place] [address] Outr Resulting Lab, Provider Social History Tobacco [...] 0.0 - 4.5 ng/mL 01/13/2021 8:01 EST [facility] Blood VENOUS BLOOD / Unknown 01/10/2021 14:15 EST 01/12/2021 15:59 EST Narrative [facility] - 01/13/2021 8:01 EST NOTE: Serum PSA concentration should not be interpreted as absolute evidence for the presence or absence of malignant disease. Assayed on Siemens ADVIA Centaur XPT using chemiluminescent technology.??Values obtained by using different assay methods cannot be used interchangeably. Provider Outr Resulting Lab CHEMISTRY & BLOOD GAS ORDERABLES [facility] [address] [place] [address] documented in this encounter Visit Diagnoses Not on filedocumented in this encounter
--- OUTSIDE RECORDS SUMMARY | 2023-09-30 15:20 | XMS_ITS | Encounter Summary ---
Author Organization [facility] Address [address] [place] [address] Care Team Providers Care Buzzsaw Operator Name Role Phone Unavailable Primary Care Provider Unavailabl e Encounter Details Date Type Department Care Team (Late st Contact Info) Description 10/27/2022 Lab Requisition [facility] Pathology & Laboratory Medicine - [facility] [address] [place] [address] Outr Resulting Lab, Provider Social History Tobacco [...] PSA 0.8 <=4.5 ng/mL 10/27/2022 19:[address] [facility] Blood VENOUS BLOOD / Unknown 10/26/2022 13:48 EDT 10/27/2022 17:[address] [facility] - 10/27/2022 19:42 EDT NOTE: Serum PSA concentration should not be interpreted as absolute evidence for the presence or absence of malignant disease. Assayed on Siemens ADVIA Centaur XPT using chemiluminescent technology.??Values obtained by using different assay methods cannot be used interchangeably. Provider Outr Resulting Lab CHEMISTRY & BLOOD GAS ORDERABLES [facility] [address] [place] [address] documented in this encounter Visit Diagnoses Not on filedocumented in this encounter
[2023-09-30 21:20] LABS: Abs Immature Grans 0.08 10^3/uL (0.0-0.06); Absolute Basophil Count 0.05 10^3/uL (0.0-0.2); Absolute Eosinophil Count 0.12 10^3/uL (0.0-0.7); Absolute Lymphocyte Count 1.97 10^3/uL (1.2-3.4); Absolute Monocyte Count 1.11 10^3/uL (0.1-0.8); Absolute Neutrophil Count 6.16 10^3/uL (1.2-6.7); Basophils % 0.5 %; Eosinophils % 1.3 %; HCT 42.9 % (40.0-50.0); HGB 13.9 g/dL (13.5-17.5); Immature Grans % 0.8 %; Lymphocytes % 20.8 %; MCH 31.2 pg (27.0-33.0); MCHC 32.4 % (32.0-36.0); MCV 96 fL (80-95); MPV 9.8 fL (8.0-11.0); Monocytes % 11.7 %; Neutrophils % 64.9 %; Platelet Count 328 10^3/uL (130-400); RBC 4.46 10^6/uL (4.36-5.78); RDW 14.1 % (11.8-14.1); RDW-SD 50.2 fL; WBC 9.49 10^3/uL (4.4-10.8)
[2023-09-30 21:46] LABS: ALT 47 U/L (16-63); AST 21 U/L (15-37); Alkaline Phosphatase 103 U/L (46-116); Anion Gap 8.7 mmol/L (3-11); BUN 9 mg/dL (7-18); Bilirubin, Total 0.53 mg/dL (0.2-1.0); CO2 28.3 mmol/L (21.0-32.0); CREATININE 1.1 mg/dL (0.70-1.30); Calcium 9.5 mg/dL (8.5-10.1); Chloride 103 mmol/L (98-107); Estimated GFR 74.04 (mL/min/1.73m2); Ferritin 90 ng/mL (26-388); Glucose 146 mg/dL (74-106); Potassium 4.6 mmol/L (3.5-5.1); Sodium 140 mmol/L (136-145)
[2023-09-30 22:00] LABS: Iron 79 ug/dL (65-175); Total Iron Binding Capacity 351 ug/dL (250-450); Transferrin Sat 23 % (20-55)
== END 2023-09-30 15:13 | disposition home or self-care (01) ==
LOC: NCHCN 15:12
PROVIDERS: PCP Nurse Practitioner Family; Visit Provider Nurse Practitioner Family
DX: I10 Essential (primary) hypertension (principal); D64.9 Anemia, unspecified
CPT/HCPCS: 80053; 82728; 83540; 83550; 85025

== ENCOUNTER 2024-04-21 12:44 | Outpatient (REF) | payer MEDICARE, MEDICAID, SELFPAY ==
[2024-04-21 14:00] LABS: Abs Immature Grans 0.07 10^3/uL (0.0-0.06); Absolute Basophil Count 0.05 10^3/uL (0.0-0.2); Absolute Eosinophil Count 0.12 10^3/uL (0.0-0.7); Absolute Lymphocyte Count 1.79 10^3/uL (1.2-3.4); Absolute Monocyte Count 0.85 10^3/uL (0.1-0.8); Absolute Neutrophil Count 6.14 10^3/uL (1.2-6.7); Basophils % 0.6 %; Eosinophils % 1.3 %; HGB 13.2 g/dL (13.5-17.5); Immature Grans % 0.8 %; Lymphocytes % 19.8 %; MCH 31.4 pg (27.0-33.0); MCV 95 fL (80-95); MPV 9.5 fL (8.0-11.0); Monocytes % 9.4 %; Neutrophils % 68.1 %; Platelet Count 334 10^3/uL (130-400); RDW 14.5 % (11.8-14.1); RDW-SD 50.7 fL; WBC 9.02 10^3/uL (4.4-10.8)
[2024-04-21 14:36] LABS: Hemoglobin A1C 5.8 % (<5.7)
== END 2024-04-21 12:45 | disposition home or self-care (01) ==
LOC: NCHCN 12:44
PROVIDERS: PCP Nurse Practitioner Family; Visit Provider Nurse Practitioner Family
DX: R73.9 Hyperglycemia, unspecified (principal); D64.9 Anemia, unspecified
CPT/HCPCS: 83036; 85025

== ENCOUNTER 2024-07-21 19:19 | Outpatient (REF) | payer MEDICARE, MEDICAID, SELFPAY ==
[2024-07-21 14:42] LABS: Abs Immature Grans 0.08 10^3/uL (0.0-0.06); Absolute Basophil Count 0.05 10^3/uL (0.0-0.2); Absolute Eosinophil Count 0.08 10^3/uL (0.0-0.7); Absolute Lymphocyte Count 1.77 10^3/uL (1.2-3.4); Absolute Monocyte Count 0.93 10^3/uL (0.1-0.8); Basophils % 0.5 %; Eosinophils % 0.9 %; HCT 41.9 % (40.0-50.0); HGB 13.5 g/dL (13.5-17.5); Immature Grans % 0.9 %; MCH 30.9 pg (27.0-33.0); MCHC 32.2 % (32.0-36.0); MCV 96 fL (80-95); MPV 10.6 fL (8.0-11.0); Neutrophils % 68.7 %; Platelet Count 301 10^3/uL (130-400); RBC 4.37 10^6/uL (4.36-5.78); RDW 14.6 % (11.8-14.1); RDW-SD 51.5 fL; WBC 9.31 10^3/uL (4.4-10.8)
[2024-07-21 14:56] LABS: Iron 80 ug/dL (65-175); Total Iron Binding Capacity 340 ug/dL (250-450); Transferrin Sat 24 % (20-55)
[2024-07-21 15:41] LABS: ALT 43 U/L (16-63); AST 23 U/L (15-37); Albumin 4.1 g/dL (3.4-5.0); Alkaline Phosphatase 99 U/L (46-116); Anion Gap 9.3 mmol/L (3-11); BUN 9 mg/dL (7-18); Bilirubin, Total 0.4 mg/dL (0.2-1.0); CO2 27.7 mmol/L (21.0-32.0); CREATININE 1.1 mg/dL (0.70-1.30); Calcium 9.8 mg/dL (8.5-10.1); Calculated LDL 83 mg/dL (<100); Chloride 103 mmol/L (98-107); Cholesterol 149 mg/dL (<200); Estimated GFR 73.58 (mL/min/1.73m2); Ferritin 78 ng/mL (26-388); Glucose 114 mg/dL (74-106); HDL Cholesterol 48 mg/dL (>or=40); Potassium 4.7 mmol/L (3.5-5.1); Sodium 140 mmol/L (136-145); TSH (W/Ref FT4) 4.93 uIU/mL (0.36-3.74); Triglyceride 90 mg/dL (<150)
[2024-07-21 16:31] LABS: FREE T4 0.81 ng/dL (0.76-1.46)
[2024-07-21 22:41] LABS: Hepatitis C Ab w Rflx HCV PCR Negative (Negative)
== END 2024-07-21 19:20 | disposition home or self-care (01) ==
LOC: NCHCN 19:19
PROVIDERS: PCP Nurse Practitioner Family; Visit Provider Nurse Practitioner Family
DX: I10 Essential (primary) hypertension (principal); D64.9 Anemia, unspecified; E03.9 Hypothyroidism, unspecified; R39.9 Unspecified symptoms and signs involving the genitourinary system
CPT/HCPCS: 80053; 80061; 86803; 82728; 83540; 83550; 84154; 84439; 84443; 85025

== ENCOUNTER → 2024-08-25 08:26 | Outpatient (BNVA) | payer MEDICARE, MEDICAID, SELFPAY | PROVIDERS: PCP Nurse Practitioner Family; Visit Provider Urology | DX: R31.29 Other microscopic hematuria (principal) | CPT/HCPCS: 99214; 81000 ==

== ENCOUNTER → 2025-01-04 09:53 | Outpatient (BNVA) | payer MEDICARE, MEDICAID, SELFPAY | PROVIDERS: PCP Nurse Practitioner Family; Referring Provider Nurse Practitioner Family; Visit Provider Physical Therapy Assistant | DX: Z12.11 Encounter for screening for malignant neoplasm of colon (principal) | CPT/HCPCS: S0285 ==

== ENCOUNTER 2025-01-31 09:14 | Day surgery (SDC) | payer MEDICARE, MEDICAID, SELFPAY ==
--- NOTE | 2025-01-18 15:42 | W.PM.DSUDISC ---
Date of service: 01/19/25 Discharge Plan Disposition Patient Disposition: Home Condition: Good Discharge Details Reason For Visit: Colonoscopy Attending Provider: Triston Be Primary Care Provider: Grisel Young Home Meds and New Rx's Prescriptions: Continued citalopram 20 mg tablet 40 mg PO DAILY losartan 25 mg tablet 50 mg PO DAILY Patient Comments: TAKE 1 TABLET BY MOUTH EVERY DAY FOR BLOOD PRESSURE simvastatin 20 mg tablet 20 mg PO DAILY Patient Comments: TAKE 1 TABLET BY MOUTH EVERY DAY levothyroxine 25 mcg capsule 25 mcg PO DAILY acetylcysteine [NAC] 600 mg capsule 1,200 mg PO BID sertraline [Zoloft] 50 MG tablet 1 tab PO DAILY quetiapine 100 mg Tablet 200 mg PO HS tamsulosin [Flomax] 0.4 mg Capsule 0.4 mg PO HS loratadine 10 mg tablet 1 tab PO DAILY Patient Comments: TAKE 1 TABLET BY MOUTH EVERY DAY melatonin 10 mg tablet 1 tab PO HS Patient Comments: Take 1 tablet by mouth at bedtime Take one hour before bedtime trazodone 50 mg tablet 100 mg PO HS Patient Comments: Take 1 tablet by mouth every night as needed Discharge Instructions Additional Instructions: 1. If tolerated, consume a soft, low fiber diet for 1-2 days. [address] Do not drive, drink alcohol, operate machinery, make critical decisions, or do activities that require coordination or balance for 24 hours. 3. Because air was put into your colon during the procedure, expelling air from your rectum (passing gas or farting) is normal. 4. You may not have a bowel movement for 1-3 days because of the colonoscopy prep. This is normal. 5. Go directly to the emergency room if you notice any of the following: Develop chills (warm to touch), or if you have a thermometer and your temperature is above 101 Difficulty breathing or difficultly swallowing Persistent vomiting Severe abdominal pain, other than gas cramps Severe chest pain Black, tarry stools Any bleeding ? exceeding one tablespoon 6. Call your physician if the site where your intravenous was started becomes red, swollen, painful, and warm to touch. 7. Your physician has reviewed your pre-procedure medications. Please continue to take those medications as previously ordered. You will be given specific information/education regarding any changes to your medications before leaving. Stand Alone Forms: Portal Information Activity:: Activity as Tolerated Diet:: As Tolerated DS: Diagnosis Discharge Diagnosis (1) Encounter for screening colonoscopy: Status: Acute
--- NOTE | 2025-01-18 15:44 | W.COLOREPORT ---
Date of service: 01/19/25 Colonoscopy Report Date of procedure: 01/19/25 Pre-op diagnosis general: Screening colonoscopy Procedure: Colonoscopy Surgeon: Triston Be Anesthesia Type: General:No Airway Complications: None Disposition: same day Indications: Screening colonoscopy Prep: Miralax/Dulcolax
[2025-01-31 09:51] VITALS: BP 162/92; PULSE 60; RESP 16; TEMP 36.7; O2SAT 97
[2025-01-31] MEDS: Lactated Ringers 1,000 ML 80 ML IV (10:07)
--- NOTE | 2025-01-31 10:11 | W.ANESPRE ---
General Info Date of Service Date Performed: 01/31/25 Height: 5 ft 8 in Weight: 89 kg Body Mass Index (BMI): 29.8 Surgical Procedure: Operation Date: 01/31/25 10:50 Proposed Procedure Side Surgeon p Kaylan Wiseman MD Meds Allergies and Home Medications Allergies Allergy/AdvReac Type Severity Reaction Status Date / Time perfume Allergy Intermediate Other (See Verified 01/31/25 09:33 Comment) Home Medication ?Medication ?Instructions ?Recorded sertraline 50 mg tablet (Zoloft) 1 tab PO DAILY 05/09/14 loratadine 10 mg tablet 1 tab PO DAILY 10/02/21 melatonin 10 mg tablet 1 tab PO HS 10/02/21 quetiapine 100 mg tablet 200 mg PO HS 10/02/21 tamsulosin 0.4 mg capsule (Flomax) 0.4 mg PO HS 10/02/21 citalopram 20 mg tablet 40 mg PO DAILY 05/01/22 trazodone 50 mg tablet 100 mg PO HS 07/13/22 acetylcysteine 600 mg capsule (NAC) 1,200 mg PO BID 05/23/24 levothyroxine 25 mcg capsule 25 mcg PO DAILY 05/23/24 losartan 25 mg tablet 50 mg PO DAILY 05/23/24 simvastatin 20 mg tablet 20 mg PO DAILY 05/23/24 bisacodyl 5 mg tablet,delayed 5 mg PO ONCE Colonoscopy Bowel 01/19/25 release Prep #4 tabs polyethylene glycol 3350 17 238 g PO ONCE #238 grams 01/19/25 gram/dose oral powder Current Visit Medications: Current Medications Generic Name Dose Route Start Last Admin Trade Name Freq PRN Reason Stop Dose Admin Ringer's Solution 1,000 mls @ 80 mls/hr 01/31/25 06:00 01/31/25 10:07 IV 01/31/25 23:59 80 mls/hr INFUSION IOANA Administration Sodium Chloride 0 ml 01/31/25 06:00 Normal Saline Flush 10 Ml Syr IV 01/31/25 23:59 PRN PRN Sodium Chloride 0 ml 01/31/25 06:00 Normal Saline 10 Ml Vial IJ 01/31/25 23:59 DIRECTED PRN Sterile Water 0 ml 01/31/25 06:00 Water,Injection,Sterile 10 Ml Vial IJ 01/31/25 23:59 DIRECTED PRN PFSH Active Problems Active Problems: Problem Status Onset Code Encounter for screening colonoscopy Acute Z12.11 Microscopic hematuria Acute R31.29 Hearing loss Acute H91.90 Iron deficiency Acute E61.1 Sleep apnea Acute G47.30 Pedal edema Acute R60.0 Hip pain, right Acute M25.551 Nuclear sclerotic cataract of left eye Resolved H25.12 Nuclear sclerotic cataract of right eye Resolved H25.11 Medical History Medical History LOS on CPAP Mood disorder Hypothyroidism Refusal of blood transfusions as patient is Shinto current as of 01/17/25 Sebaceous cyst Insomnia Dyspepsia Lower urinary tract symptoms (LUTS) HTN (hypertension) Seasonal allergies Elevated blood sugar Iron deficiency anemia Glaucoma Asymptomatic microscopic hematuria Fatigue Bilateral cataracts ASCVD (arteriosclerotic cardiovascular disease) Surgical History Surgical History H/O colonoscopy Hx of repair of rotator cuff pt denies he had this surgery Tobacco Smoking/Tobacco Use Status: Former Tobacco Use Alcohol Alcohol Intake: current Alcohol intake frequency: 0-2 drinks per day Alcohol type: beer Substance Use Substance use: Daily Substance use type: marijuana Details: smokes THC Vital Signs and Lab Results Vital Signs Most Recent Vital Signs in EMR: Most Recent Vital Signs Temp Pulse Resp BP Pulse Ox 36.7 C 60 16 162/92 H 97 01/31/25 09:51 01/31/25 09:51 01/31/25 09:51 01/31/25 09:51 01/31/25 09:51 Imaging and Studies Imaging and Studies Study information below may be from another EMR and interpreted by another provider. Please see original notes in EMR for more complete details. Stress Test Summary: 05/09/2014: No ischemia. Anesthesia Assessment and Plan Anesthesia History Personal History: No History of Anesthesia Complications Family History: No Family History of Anesthesia Complications Exercise Tolerance Exercise Tolerance: Metabolic Equivalents>4 Cardiac & Pulmonary Exam Cardiac Exam: Normal S1/S2 Heart Sounds Pulmonary Exam: Clear Bilateral Breath Sounds Implantable Cardiac Device Does patient have a Pacemaker or an ICD?: No Airway Exam Known Difficult Airway: No Mallampati Class: 3 Mouth Opening: Normal (> 3cm) Thyromental Distance: Greater than 3 cm Neck Range of Motion: Full ROM Neck Circumference: Normal Teeth Condition: Edentulous ASA Classification ASA Score: ASA 2 Emergency Case?: No NPO Status NPO Status: NPO Clears >2 hours, Solids >8 hours Anesthesia Plan Resuscitation Status: Full Code Anesthesia Technique: General Anesthesia Airway Planned: Natural Airway Monitors Used: Standard Monitors
[2025-01-31 10:15] VITALS: BMI 29.8
--- NOTE | 2025-01-31 10:42 | BOWEL_PTH ---
PATIENT: Cullen Jose LOC: [facility] U#:[id number] AGE/SX: 69/M ROOM: RE01/31/[address]: Gianna Wiseman : 1955 BED: DIS: 01/31/2025 SPEC #: [id number] RECD: 01/31/25 13:15 STATUS: JOSI RE #: [id number] GET: 01/31/25 10:[address]: Gianna Wiseman DEPT: Surgical Specimen RECD BY: Sherri Samuel ENTERED: 01/31/25 13:16 SP TYPE: Bowel OTHR DR: Grisel Young Tissues: 1 - BIOPSY BOWEL 2 - BIOPSY BOWEL Procedures: GROSS AND MICRO LEVEL 4 Comments: [id number]
[2025-01-31 11:00] VITALS: BP 142/86; PULSE 83; RESP 16; TEMP 36; O2SAT 97
--- NOTE | 2025-01-31 11:02 | W.PM.DSUDISC ---
Date of service: 01/31/25 Discharge Plan Disposition Patient Disposition: Home Condition: Good Discharge Details Reason For Visit: Colonoscopy Attending Provider: Gianna Wiseman Primary Care Provider: Grisel Young Recommendations for Follow Up Recommended tests to be ordered by follow up provider: Follow up pathology Home Meds and New Rx's Prescriptions: Continued citalopram 20 mg tablet 40 mg PO DAILY losartan 25 mg tablet 50 mg PO DAILY Patient Comments: TAKE 1 TABLET BY MOUTH EVERY DAY FOR BLOOD PRESSURE simvastatin 20 mg tablet 20 mg PO DAILY Patient Comments: TAKE 1 TABLET BY MOUTH EVERY DAY levothyroxine 25 mcg capsule 25 mcg PO DAILY acetylcysteine [NAC] 600 mg capsule 1,200 mg PO BID sertraline [Zoloft] 50 MG tablet 1 tab PO DAILY quetiapine 100 mg Tablet 200 mg PO HS tamsulosin [Flomax] 0.4 mg Capsule 0.4 mg PO HS loratadine 10 mg tablet 1 tab PO DAILY Patient Comments: TAKE 1 TABLET BY MOUTH EVERY DAY melatonin 10 mg tablet 1 tab PO HS Patient Comments: Take 1 tablet by mouth at bedtime Take one hour before bedtime trazodone 50 mg tablet 100 mg PO HS Patient Comments: Take 1 tablet by mouth every night as needed Discontinued bisacodyl 5 mg tablet,delayed release (DR/EC) 5 mg PO ONCE Qty: 4 0RF Rx Instructions: Per Colonoscopy bowel prep instructions polyethylene glycol 3350 17 gram/dose powder 238 g PO ONCE Qty: 238 0RF Rx Instructions: For Colonoscopy bowel prep, as directed by office Discharge Instructions Additional Instructions: Your procedure went well today. You had evidence of diverticulosis or small outpouchings of the colon. You did have evidence of 2 larger polyps which were removed today. These polyps will be sent to pathology. We will contact you once the results return and make recommendations for when to return for a follow-up colonoscopy. If you have any questions or concerns please contact the surgery office. 1. If tolerated, consume a soft, low fiber diet for 1-2 days. 2[address] Do not drive, drink alcohol, operate machinery, make critical decisions, or do activities that require coordination or balance for 24 hours. 3. Because air was put into your colon during the procedure, expelling air from your rectum (passing gas or farting) is normal. 4. You may not have a bowel movement for 1-3 days because of the colonoscopy prep. This is normal. 5. Go directly to the emergency room if you notice any of the following: Develop chills (warm to touch), or if you have a thermometer and your temperature is above 101 Difficulty breathing or difficultly swallowing Persistent vomiting Severe abdominal pain, other than gas cramps Severe chest pain Black, tarry stools Any bleeding ? exceeding one tablespoon 6. Call your physician if the site where your intravenous was started becomes red, swollen, painful, and warm to touch. 7. Your physician has reviewed your pre-procedure medications. Please continue to take those medications as previously ordered. You will be given specific information/education regarding any changes to your medications before leaving. Stand Alone Forms: Anesthesia Discharge Inst., Alis Nunes (DSU), Portal Information Activity:: Activity as Tolerated Diet:: As Tolerated Discharge Orders Discharge Orders: Discharge Order (Routine); Ordered 01/18/25 Ordered By: Triston Be DS: Diagnosis Discharge Diagnosis (1) Encounter for screening colonoscopy: Status: Acute
--- NOTE | 2025-01-31 11:05 | COLE_ITS ---
Date of service: 01/31/25 Time of Service: 11:05 Colonoscopy Report Date of procedure: 01/31/25 Pre-op diagnosis general: Screening colonoscopy Post-op diagnosis procedure note: other (Colon polyps ) Procedure: Colonoscopy with polypectomy Surgeon: Gianna Wiseman Anesthesia Type: General:No Airway Estimated blood loss (mL): 1 Pathology: other (Colon polyp at 30cm and polyp at 20cm ) Complications: None Disposition: PACU Indications: Patient is a 69-year-old male who presents for screening colonoscopy. His last colonoscopy was in 2014 and normal. He denies any changes in his bowel habits or blood in his stool. Prep: Miralax/Dulcolax Procedure Start Time: 10:31 Procedure End Time: 10:54 Retraction Time: 18 Findings: Two large, 1cm, pedunculated polyps removed with hot snare. Evidence of sigmoid diverticulosis. Procedure Description: The patient was brought to the endoscopy suite and placed in the left lateral decubitus position. After induction of IV sedation, a digital rectal exam was performed.. Digital exam was normal. The colonoscope was then passed to the cecum without difficulty. Cecal intubation was confirmed by the identification of the appendiceal orifice and the ileocecal valve. Upon withdrawing the colonoscope, all mucosal surfaces were inspected. The prep was noted to be adequate. At 30cm there was a large, 1cm, pedunculated polyp. This polyp was removed in its entirety with a hot snare. There was another large, pedunculated, 1 cm polyp at 20 cm which was removed in its entirety with a hot snare. Hemostasis was adequate at both sites. The specimens were retrieved for pathologic analysis. There was also evidence of diverticulosis in the sigmoid colon. Retroflexion in the rectum was unremarkable. The patient tolerated the procedure well with no complications. Postoperatively, the patient was transferred to the recovery room in stable condition. [place] Bowel Prep [place] Bowel Prep Right Colon: 3 Left Colon: 3 Transverse Colon: 3 Total Score: 9
--- NOTE | 2025-01-31 11:21 | W.ANESPOSTOP ---
Postoperative Evaluation Date, Time and Location Date Performed: 01/31/25 Time Performed: 11:00 Patient Location: Day Surgery Unit Vital Signs Most Recent Imported Vital Signs: Most Recent Vital Signs Temp Pulse Resp BP Pulse Ox 36 C L 83 16 142/86 H 97 01/31/25 11:00 01/31/25 11:00 01/31/25 11:00 01/31/25 11:00 01/31/25 11:00 Pain Score Most Recent Pain Score: Most Recent Pain Score Pain Level 0 01/31/25 11:00 Assessment Mental Status: Awake (Alert & Oriented to Patient Baseline) Airway and Respiratory Function: Patent airway with normal (patient baseline) respiratory exam Cardiovascular Function: Hemodynamically Stable Hydration Status: Adequately Hydrated Nausea & Vomiting: No Nausea or Vomiting Pain: Pt. Denies Any Pain Peripheral Nerve Block: Patient did not receive a nerve block Teaching Patient Teaching: Discussed the importance of using CPAP/BiPAP during any sleep period
[2025-01-31 11:30] VITALS: BP 160/95; PULSE 85; RESP 18; TEMP 36.4; O2SAT 98
== END 2025-01-31 11:46 | disposition home or self-care (01) ==
LOC: SUR 09:14
PROVIDERS: PCP Nurse Practitioner Family; Visit Provider Student in an Organized Health Care Education/Training Program
PROC: 0DJD8ZZ Inspection of Lower Intestinal Tract, Via Natural or Artificial Opening Endoscopic (ICD-10-PCS; CPT 45378; principal; 2025-01-31 10:45)
DX: Z12.11 Encounter for screening for malignant neoplasm of colon (principal); D37.4 Neoplasm of uncertain behavior of colon; G47.30 Sleep apnea, unspecified; K57.30 Diverticulosis of large intestine without perforation or abscess without bleeding
CPT/HCPCS: 45385; 88305; J2003; J2704

== ENCOUNTER 2025-02-06 21:17 | Outpatient (REF) | payer MEDICARE, MEDICAID, SELFPAY ==
[2025-02-06 21:28] LABS: Glucose Negative (Negative)
[2025-02-06 22:07] LABS: RBC 0-2 HPF (0-2); WBC Negative HPF (0-5)
[2025-02-06 22:08] LABS: C & S Indicated? No
== END 2025-02-06 21:18 | disposition home or self-care (01) ==
LOC: NCHCN 21:17
PROVIDERS: PCP Nurse Practitioner Family; Visit Provider Student in an Organized Health Care Education/Training Program
DX: R39.9 Unspecified symptoms and signs involving the genitourinary system (principal); R31.21 Asymptomatic microscopic hematuria; I10 Essential (primary) hypertension; N40.0 Benign prostatic hyperplasia without lower urinary tract symptoms
CPT/HCPCS: 81003; 81015; 82043; 82570